=== PATIENT | female | born 1985 | race Hispanic/Latino ===

== ENCOUNTER 2018-12-30 05:55 | Day surgery (SDC) | payer MEDICAID ==
[~2018-12-30 05:55] MED LIST: LACTATED RINGERS 1,000 ML IV SCH
[2018-12-30] MEDS ORDERED: VERSED IV NR ×2 (06:00→09:43)
[2018-12-30] MEDS ORDERED: NACL BACTERIOSTATIC INFILTRATI ONE (06:54)
[2018-12-30] MEDS ORDERED: ZOFRAN IV PRN (07:04)
--- NOTE | 2018-12-30 07:04 | Anesthesia Day of Surgery ---
Anesthesia Day of Surgery - Day of Surgery Patient Examined: Yes Patient H&P Reviewed: Yes Patient is NPO: Yes
--- NOTE | 2018-12-30 07:04 | Anesthesia Consultation ---
Anesthesia Consult and Med Hx Date of service: 12/30/18 - Airway Anesthetic Teeth Evaluation: Good ROM Head & Neck: Adequate Mental/Hyoid Distance: Adequate Mallampati Class: Class II Intubation Access Assessment: Good - Pulmonary Exam CTA: Yes - Cardiac Exam Cardiac Exam: RRR - Pre-Operative Health Status ASA Pre-Surgery Classification: ASA2 Proposed Anesthetic Plan: General - Pulmonary Hx Asthma: No COPD: No Hx Pneumonia: No - Cardiovascular System Hx Hypertension: No - Central Nervous System Hx Seizures: No Hx Psychiatric Problems: No - Endocrine Hx Renal Disease: No Hx End Stage Renal Disease: No Hx Hypothyroidism: No Hx Hyperthyroidism: No - Hematic Hx Anemia: No Hx Sickle Cell Disease: No - Other Systems Hx Alcohol Use: No
[2018-12-30] MEDS ORDERED: SILVER NITRATE TP ONE ×2 (07:28→09:48)
[2018-12-30] MEDS ORDERED: METHERGINE IM ONE (07:28)
[2018-12-30] MEDS ORDERED: ROBINUL ONE (07:35)
[2018-12-30] MEDS ORDERED: XYLOCAINE MPF 2% ONE (07:35)
[2018-12-30] MEDS ORDERED: DIPRIVAN 10 MG/ML IV ONE (07:35)
[2018-12-30] MEDS ORDERED: SUBLIMAZE ONE ×2 (07:35→08:48)
[2018-12-30] MEDS ORDERED: DECADRON ONE (07:35)
[2018-12-30] MEDS ORDERED: ZOFRAN ONE (07:35)
--- NOTE | 2018-12-30 08:43 | Short Stay Summary ---
Short Stay Documentation Date of service: 12/30/18 Narrative H&P: Pt is a 33 year old who presents for treatment of missed at 9 weeks. Pt has not had any bleeding or cramping to date. - History H&P: obtained from office Past Medical History: other (anxiety) Past Surgical History: No surgical history Social history: single - Allergies and Medications Current Medications: Allergies No Known Allergies Allergy (Verified 08/09/15 09:48) Home Medications Medication Instructions Recorded Confirmed Last Taken Type ALPRAZolam [Xanax TAB] 1 mg PO TID PRN 12/30/18 12/30/18 12/29/18 History Active Medications Hydromorphone HCl (Dilaudid) 0.25 mg IV Q10MIN PRN PRN Reason: Pain, Moderate (4-6) Stop: 12/30/18 22:00 Lactated Ringer's (Lactated Ringers) 1,000 mls @ 100 mls/hr IV DIRECT THADDEUS Last Admin: 12/30/18 07:00 Dose: 100 mls/hr Documented by: Midazolam HCl (Versed) 2 mg IV PREOP NR Stop: 12/30/18 23:59 Last Admin: 12/30/18 07:13 Dose: 2 mg Documented by: Ondansetron HCl (Zofran) 4 mg IV ONCE PRN PRN Reason: Nausea And Vomiting - Physical exam General appearance: no acute distress Integumentary: no rash Lungs: Clear to auscultation, Normal air movement Breasts: deferred Heart: Regular rate, Normal S1, Normal S2 Gastrointestinal: normal, normoactive bowel sounds Female Genitourinary: normal Rectal Exam: deferred Extremities: no ischemia, pulses intact, No edema - Brief post op/procedure progress note Date of procedure: 12/30/18 Pre-op diagnosis: missed Post-op diagnosis: same Procedure: Dilation and evacuation of uterus Anesthesia: MAC Surgeon: REMA SANFORD Estimated blood loss: minimal Pathology: list Specimen disposition: to lab Condition: stable - Hospital course Hospital course: unremarkable - Disposition Condition at discharge: Good Disposition: [id number] TO HOME OR SELFCARE Short Stay Discharge Plan Activity: advance as tolerated Weight Bearing Status: Weight Bear as Tolerated Diet: regular Follow up with: REMA SANFORD MD [Staff Physician] - 14 Days Prescriptions: Ibuprofen [Motrin 800 MG tab] 800 mg PO Q8HR PRN #30 tablet PRN Reason: Pain, Moderate (4-6) HYDROcodone/APAP 5-325 [Brandon 5/325] 1 each PO Q6HR PRN #15 tablet PRN Reason: Pain
[2018-12-30] MEDS ORDERED: ANCEF ONE (09:01)
[2018-12-30] MEDS ORDERED: PHENYLEPHRINE/NS Syringe 1,000 MCG/10 ML IV ONE (09:23)
--- NOTE | 2018-12-30 09:41 | Operative Report ---
Operative Report Operative Report: Preoperative diagnoses: Missed Postoperative diagnosis: Same Procedure: D and E Surgeon: Sandhya Rasmussen M.D. Anesthesia: MAC EBL: Minimal Urine output: 100 mL clear Complications: None Specimens: Products of conception Procedure: Patient was taken to the OR with IV running and in place. She will probably identified as herself. She was given adequate anesthesia. She was then placed in the dorsal lithotomy position and prepped and draped in normal sterile fashion. Attention was turned to the patient's vagina. Her bladder was then drained of approximately 100 mL of clear yellow urine. A bivalve speculum was placed the patient's vagina. Cervix was visualized and grasped with a single-tooth tenaculum. The cervix was then gently dilated up to approximately 29 mm. Following this, a #10 suction curette was inserted into the patient's uterus at the level of the fundus. It was then attached to the suction machine and the curettage was performed removing products of conception. At one point the curet was removed and a large banjo curet was introduced into the uterus to further retrieve any additional products. Following this the suction curette was reintroduced and more tissue was obtained. It was excellent hemostasis noted at the end of this portion of the procedure. At this point all instruments were removed from the patient's vagina. She was then awakened and taken to recovery in stable condition. She tolerated the procedure well
[2018-12-30] MEDS ORDERED: NACL 0.9% IR ONE (09:49)
[2018-12-30] MEDS: DILAUDID IV PRN ×4 (09:53→10:20)
[2018-12-30 11:35] VITALS: BP 107/64
--- NOTE | 2018-12-31 09:27 | Post Anesthesia Evaluation ---
- Post Anesthesia Evaluation Patient Participated: Yes Airway Patent: Yes Stable Respiratory Function: Yes Nausea/Vomiting: No Temp > 96.8F: Yes Pain Manageable: Yes Adequeate Hydration: Yes Anesthesia Complications: No Block Receding Appropriately: Not Applicable Patient on Ventilator: No
== END 2018-12-30 11:25 | disposition home or self-care (01) ==
LOC: OR 05:55
PROVIDERS: ATTEND Obstetrics & Gynecology
DX: O02.1 Missed abortion (principal); F17.210 Nicotine dependence, cigarettes, uncomplicated; Z79.899 Other long term (current) drug therapy; Z3A.09 9 weeks gestation of pregnancy; Z98.890 Other specified postprocedural states; Z98.891 History of uterine scar from previous surgery; Z83.3 Family history of diabetes mellitus; Z80.8 Family history of malignant neoplasm of other organs or systems
CPT/HCPCS: 59820; 86900; 86901; 88305; J0690; J1100; J1170; J2250; J2370; J2405; J2704; J3010; J7120; J2210